=== PATIENT | female | born 1990 | race Caucasian/White ===

== ENCOUNTER 2020-08-27 00:06 | Inpatient (IN) | payer BC ==
[~2020-08-27 00:06] MED LIST: Acetaminophen 325 MG Tab PO PRN; Lactated Ringers 1,000 ML IV ONE; Ondansetron 4 MG/2 ML SDV IVPUSH PRN; Oxytocin/Normal Saline 30 UNIT/500 ML BAG IV SCH; hydrOXYzine HCl 25 MG Tab PO PRN
[2020-08-27] MEDS ORDERED: Oxytocin/Normal Saline 30 UNIT/500 ML BAG IV ONE (00:11)
[2020-08-27] MEDS: Misoprostol 25 MCG (1/4 of 100 MCG) Tab VAG PRN ×2 (01:50→06:04)
[2020-08-27] MEDS: Sodium Chloride 0.9% 10 ML Syringe FLUSH PRN (01:50)
[2020-08-27] MEDS: Lactated Ringers 1,000 ML IV SCH ×2 (10:30→11:35)
[2020-08-27] MEDS ORDERED: Citric Acid/Sodium Citrate Solution 30 ML Cup PO ONE (11:11)
[2020-08-27] MEDS ORDERED: Sodium Chloride 0.9% 10 ML Syringe FLUSH PRN (11:27)
[2020-08-27] MEDS ORDERED: Tranexamic Acid 1,000 MG in Sodium Chloride 0.9% 100 ML IV PRN (11:27)
[2020-08-27] MEDS ORDERED: ceFAZolin 2 GM in Premix Bag 1 BAG IV ONE (11:30)
[2020-08-27] MEDS ORDERED: Oxytocin/Normal Saline 30 UNIT/500 ML BAG IV SCH (11:30)
--- NOTE | 2020-08-27 11:34 | PCM.LDHP ---
L&D History of Present Illness - General Date of Service: 08/27/20 Admit Problem/Dx: Patient Status Order with Admit Dx/Problem 08/26/20 21:59 Patient Status [ADT] Routine Admission Diagnosis/Problem Admission Diagnosis/Problem High risk Source of Information: Patient - History of Present Illness Introduction:: Patient is at 37w0d who is being admitted to L & D for induction of labor due to diagnosis of preeclampsia. She had elevated blood pressures around 35 weeks and 24 hour total protein was 300 confirming diagnosis. She was started on 100 mg Labetalol BID. This was increased to 200 mg BID earlier this week. Blood pressures have been 130s/80s. Baby has been active. She denies loss of fluid, vaginal discharge or bleeding. She is taking iron for maternal anemia. She failed 1 hr glucose test but passed her 3 hour. She has a history of delivery. Did not know she was with first baby and delivered around 37 weeks based on baby's physical exam. She did do vaginal progesterone for a couple of weeks due to shortened cervix and history of delivery. She is GBS negative. - Related Data Allergies/Adverse Reactions: Allergies Allergy/AdvReac Type Severity Reaction Status Date / Time Penicillins Allergy Hives Verified 08/27/20 03:03 Home Medications: Home Meds Pnv No.95/Ferrous Fum/Folic AC [ Caplet] 1 each PO DAILY 08/17/20 [History] Past Medical History [employer] History: Reports: , Other (See Below) Other OB/BYN History: surgical removal of IUD Neurological History: Reports: Migraines - Infectious Disease History Infectious Disease History: Reports: None Social & Family History - Family History Family Medical History: No Pertinent Family History (Family history of lung and throat cancer in maternal grandparents. Stoke and HTN in paternal grandfather.) - Tobacco Use Tobacco Use Status *Q: Never Tobacco User Second Hand Smoke Exposure: No - Caffeine Use Caffeine Use: Reports: None - Recreational Drug Use Recreational Drug Use: No H&P Review of Systems - Review of Systems: Review Of Systems: See Below General: Denies: Fever, Chills, Weakness HEENT: Reports: Headaches. Denies: Sore Throat, Visual Changes Pulmonary: Denies: Shortness of Breath, Cough Cardiovascular: Reports: Edema, Blood Pressure Problem. Denies: Chest Pain, Palpitations, Lightheadedness Gastrointestinal: Denies: Abdominal Pain, Constipation, Diarrhea, Nausea, Vomiting Skin: Denies: Rash Neurological: Reports: Headache. Denies: Numbness, Seizure, Weakness Hematologic/Lymphatic: Reports: Anemia L&D Exam - Exam Exam: See Below - Vital Signs Vital Signs: Last Vital Signs Temp 98.5 F 08/27/20 05:15 Pulse 74 08/27/20 05:15 Resp 18 08/27/20 05:15 BP 141/84 H 08/27/20 05:15 Pulse Ox Weight: 92.986 kg - OB Specific Contraction Duration (sec): 60-80 Contraction Frequency (min): 3.5-7 Contraction Intensity: Mild - Reina Score Reina Score Cervix Position: Midposition Reina Score Consistency: Medium Reina Score Effacement: 31-50% Reina Score Dilation: Closed - Exam General: Alert, Oriented HEENT: Conjunctiva Clear, Mucosa Moist & [place] Neck: Supple, Trachea Midline Lungs: Clear to Auscultation, Normal Respiratory Effort Cardiovascular: Regular Rate, Regular Rhythm, Normal S1, Normal S2 GI/Abdominal Exam: Soft, Non-Tender Extremities: Non-Tender, Normal Capillary Refill, Pedal Edema Skin: Warm, Dry Neurological: Reflexes Equal Bilateral Psychiatric: Alert, Normal Affect, Normal Mood - Patient Data Lab Results Last 24 hrs: Laboratory Results - last 24 hr 08/27/20 08/27/20 08/27/20 Range/Units 01:11 01:18 01:18 WBC 9.0 (5.0-10.0) 10^3/uL RBC 4.20 (4.2-5.4) 10^6/uL Hgb 12.5 (12.0-16.0) g/dL Hct 37.7 (37.0-47.0) % MCV 89.8 (80-100) fL MCH 29.8 (27.0-34.0) pg MCHC 33.2 (33.0-35.0) g/dL Plt Count 172 (150-450) 10^3/uL BUN 13 (7-18) mg/dL Creatinine 0.96 (0.55-1.02) mg/dL Est Cr Clr Drug Dosing TNP Estimated GFR (MDRD) > 60 Uric Acid 7.3 H (2.6-6.0) mg/dL AST 17 (15-37) U/L ALT 18 (14-59) U/L Lactate Dehydrogenase 173 (81-234) U/L Urine Color (YELLOW) Urine Appearance (CLEAR) Urine pH (5.0-9.0) Ur Specific [place] (1.005-1.030) Urine Protein (NEGATIVE) Urine Glucose (UA) (NEGATIVE) Urine Ketones (NEGATIVE) Urine Occult Blood (NEGATIVE) Urine Nitrite (NEGATIVE) Urine Bilirubin (NEGATIVE) Urine Urobilinogen (0.2-1.0) mg/dL Ur Leukocyte Esterase (NEGATIVE) Ur Random Creatinine (No establ ref range) mg/dL U Random Total Protein (0.0-11.9) mg/dL Protein/Creatinin Ratio (<150.0) mg/g SARS-CoV-2 RNA (TICO) Negative (NEGATIVE) 08/27/20 08/27/20 Range/Units 01:45 01:45 WBC (5.0-10.0) 10^3/uL RBC (4.2-5.4) 10^6/uL Hgb (12.0-16.0) g/dL Hct (37.0-47.0) % MCV (80-100) fL MCH (27.0-34.0) pg MCHC (33.0-35.0) g/dL Plt Count (150-450) 10^3/uL BUN (7-18) mg/dL Creatinine (0.55-1.02) mg/dL Est Cr Clr Drug Dosing Estimated GFR (MDRD) Uric Acid (2.6-6.0) mg/dL AST (15-37) U/L ALT (14-59) U/L Lactate Dehydrogenase (81-234) U/L Urine Color Yellow (YELLOW) Urine Appearance Turbid (CLEAR) Urine pH 7.0 (5.0-9.0) Ur Specific [place] >= 1.030 (1.005-1.030) Urine Protein 30 H (NEGATIVE) Urine Glucose (UA) Negative (NEGATIVE) Urine Ketones Negative (NEGATIVE) Urine Occult Blood Trace-intact H (NEGATIVE) Urine Nitrite Negative (NEGATIVE) Urine Bilirubin Negative (NEGATIVE) Urine Urobilinogen 0.2 (0.2-1.0) mg/dL Ur Leukocyte Esterase Moderate H (NEGATIVE) Ur Random Creatinine 166.82 (No establ ref range) mg/dL U Random Total Protein 33.8 H (0.0-11.9) mg/dL Protein/Creatinin Ratio 202.6 H (<150.0) mg/g SARS-CoV-2 RNA (TICO) (NEGATIVE) Result Diagrams: 08/27/20 01:18 08/27/20 01:18 - Problem List (1) Preeclampsia SNOMED Code(s): 939451829 ICD Code: O14.90 - UNSPECIFIED PRE-ECLAMPSIA, UNSPECIFIED TRIMESTER Status: Acute Current Visit: Yes (2) Maternal anemia in , antepartum SNOMED Code(s): 000226480 ICD Code: O99.019 - ANEMIA COMPLICATING , UNSPECIFIED TRIMESTER Status: Acute Current Visit: Yes (3) Hx of delivery, currently SNOMED Code(s): 363579525, 413402495 ICD Code: O09.899 - SUPERVISION OF OTHER HIGH RISK PREGNANCIES, UNSP TRIMESTER Status: Acute Current Visit: Yes Problem List Initiated/Reviewed/Updated: Yes Orders Last 24hrs: Active Orders 24 hr Category Date Time Status Patient Status [ADT] Routine ADT 08/26/20 21:59 Active Communication Order [RC] ASDIRECTED Care 08/26/20 21:59 Active Communication Order [RC] ASDIRECTED Care 08/26/20 21:59 Active Communication Order [RC] ASDIRECTED Care 08/26/20 21:59 Active Communication Order [RC] ASDIRECTED Care 08/26/20 21:59 Active Communication Order [RC] ASDIRECTED Care 08/26/20 21:59 Active Notify Provider Vital Signs OB [RC] ASDIRECTED Care 08/26/20 21:59 Active Notify Provider [RC] PRN Care 08/26/20 21:59 Active Notify Provider [RC] PRN Care 08/26/20 21:59 Active Notify Provider [RC] STAT Care 08/26/20 21:59 Active Peripheral IV Care [RC] . DIRECTED Care 08/27/20 11:28 Ordered Peripheral IV Care [RC] 08,20 Care 08/26/20 22:02 Active Procedure Site Prep Instruct [RC] ASDIRECTED Care 08/27/20 11:27 Ordered RT Incentive Spirometry [RC] ASDIRECTED Care 08/27/20 11:27 Ordered Up ad Luzmaria [RC] PER UNIT ROUTINE Care 08/26/20 21:59 Active Vaginal Exam [RC] PRN Care 08/26/20 21:59 Active Vital Signs [RC] 08,20 Care 08/26/20 21:59 Active Vital Signs [RC] PER UNIT ROUTINE Care 08/27/20 11:27 Ordered Nothing Per Oral Diet [DIET] Diet 08/27/20 Breakfast Ordered Nothing Per Oral Diet [DIET] Diet 08/27/20 Dinner Ordered Nothing Per Oral Diet [DIET] Diet 08/27/20 Lunch Ordered TYPE AND SCREEN [BBK] Stat Lab 08/27/20 11:27 Ordered Acetaminophen [TylenoL] Med 08/26/20 21:59 Active 650 mg PO Q4H PRN Lactated Ringers @ 125 MLS/HR(1000ml) Med 08/27/20 11:30 Ordered Lactated Ringers [Ringers, Lactated] 1,000 ml IV ASDIRECTED Ondansetron [Zofran] Med 08/26/20 22:06 Active 4 mg IVPUSH Q4H PRN Oxytocin 30 Units in NS @ 2 MUNITS/MIN(500ml) Med 08/27/20 11:30 Ordered Oxytocin/Normal Saline [Pitocin in NS 30 UNIT/500 ML] 30 unit in 500 ml IV TITRATE Oxytocin/Normal Saline [Pitocin in NS 30 UNIT/500 ML] Med 08/26/20 22:00 Active 30 unit in 500 ml IV TITRATE Sodium Chloride 0.9% [Saline Flush] Med 08/26/20 21:59 Active 10 ml FLUSH ASDIRECTED PRN Sodium Chloride 0.9% [Saline Flush] Med 08/27/20 11:27 Ordered 10 ml FLUSH ASDIRECTED PRN Tranexamic Acid [Cyklokapron] 1,000 mg Med 08/27/20 11:27 Ordered Sodium Chloride 0.9% [Normal Saline] 100 ml IV ONETIME ceFAZolin [Ancef 2 GM/50 ML] 2 gm Med 08/27/20 11:27 Ordered Premix Bag 1 bag IV ONETIME hydrOXYzine HCL [Atarax] Med 08/26/20 22:05 Active 50 mg PO ONETIME PRN miSOPROStoL [Cytotec] Med 08/26/20 21:59 Active 25 mcg VAG Q4H PRN Peripheral IV Insertion Adult [OM.PC] Routine Oth 08/27/20 11:27 Ordered Peripheral IV Insertion Adult [OM.PC] Urgent Oth 08/26/20 21:59 Ordered Schedule Procedure [COMM] Per Unit Routine Oth 08/27/20 11:27 Ordered Code Status [Resuscitation Status] Routine Resus Stat 08/26/20 22:03 Ordered Medication Orders Acetaminophen (Acetaminophen 325 Mg Tab) 650 mg PO Q4H PRN PRN Reason: Pain/Fever Hydroxyzine HCl (Hydroxyzine Hcl 25 Mg Tab) 50 mg PO ONETIME PRN PRN Reason: Sleep Last Admin: 08/27/20 01:57 Dose: 50 mg Documented by: MICHAEL Oxytocin/Sodium Chloride (Pitocin In Ns 30 Unit/500 Ml) 30 unit in 500 mls @ 2 mls/hr IV TITRATE DANIELLA; Protocol Misoprostol (Misoprostol 25 Mcg (1/4 Of 100 Mcg) Tab) 25 mcg VAG Q4H PRN PRN Reason: cervical ripening Last Admin: 08/27/20 06:04 Dose: 25 mcg Documented by: Admin: 08/27/20 01:50 Dose: 25 mcg Documented by: MICHAEL Ondansetron HCl (Ondansetron 4 Mg/2 Ml Sdv) 4 mg IVPUSH Q4H PRN PRN Reason: Nausea/Vomiting Sodium Chloride (Sodium Chloride 0.9% 10 Ml Syringe) 10 ml FLUSH ASDIRECTED PRN PRN Reason: Keep Vein Open Last Admin: 08/27/20 01:50 Dose: 10 ml Documented by: MICHAEL Assessment/Plan Comment:: Patient here for induction of labor at 37w0d due to preeclampsia. Check PIH labs. Will monitor blood pressures closely. Will start with cytotec. Pitocin when appropriate, AROM when able. She does desire intrathecal. GBS negative. Anticipate vaginal delivery. Ambar Machado MD
[2020-08-27] MEDS ORDERED: Oxytocin/Normal Saline 60 UNIT/1,000 ML BAG ONE (11:35)
--- NOTE | 2020-08-27 11:40 | PCM.SN.2 ---
- Free Text/Narrative Note: 08/27/20 Patient is at 37w0d here for induction of labor. She has received 2 doses of Cytotec. Current cervical exam is 1.5 cm dilated. When due for her check at 10 AM, she was placed back on the monitor and baby has had recurrent decels into the 80s since then. She was given oxygen and fluid boluses along with r epositioning with no improvement. Given current tracing, baby unlikely to tolerate labor as baby has failed stress test. Dr. Skinner consulted for further management. Will proceed with . Ambar Machado MD
[2020-08-27] MEDS ORDERED: Metoclopramide 10 MG/2 ML SDV IV ONE (12:00)
[2020-08-27] MEDS ORDERED: Tranexamic Acid 1,000 MG in Sodium Chloride 0.9% 100 ML IV ONE (12:00)
[2020-08-27] MEDS ORDERED: Dexamethasone 4 MG/ML SDV IV ONE (12:00)
[2020-08-27] MEDS ORDERED: Ketorolac 30 MG/ML SDV IVPUSH ONE (12:00)
[2020-08-27] MEDS ORDERED: ePHEDrine 50 MG/ML SDV IV ONE (12:00)
[2020-08-27] MEDS ORDERED: Ondansetron 4 MG/2 ML SDV IV ONE (12:00)
[2020-08-27] MEDS ORDERED: Methylergonovine 0.2 MG/1 ML Amp IM PRN (18:36)
[2020-08-27] MEDS ORDERED: ePHEDrine 50 MG/ML SDV IVPUSH PRN (18:36)
[2020-08-27] MEDS ORDERED: Ondansetron 4 MG/2 ML SDV IVPUSH PRN (18:36)
[2020-08-27] MEDS ORDERED: Naloxone 2 MG/2 ML Syringe IVPUSH PRN (18:36)
[2020-08-27] MEDS ORDERED: Misoprostol 400 MCG (4 X 100 MCG TAB) RECTAL PRN (18:36)
[2020-08-27] MEDS ORDERED: Carboprost Tromethamine 250 MCG/1 ML Amp IM PRN (18:36)
[2020-08-27] MEDS ORDERED: diphenhydrAMINE 50 MG/ML SDV IVPUSH PRN (18:36)
--- NOTE | 2020-08-27 18:38 | PCM.PRNOTE ---
- Free Text/Narrative Note: Section Operative Report Date of Surgery: 08/27/2020 Surgeon: Elvi Skinner MD Cigarette Paper Tester: Ambar Machado MD Pre-Operative Diagnosis: at 37w0d Pre-eclampsia Non-reassuring status Post-Operative Diagnosis: Same Procedure Performed: Primary low transverse section Anesthesia: Spinal EBL: 600 mL IVF: 1500 mL Drains: Narvaez catheter with 425 mL of urine output Specimens: None Complications: None apparent Findings: Normal uterus, tubes, and ovaries. Umbilical cord with true knot present Indication and Consent: After Cytotec placement, FHT showed persistent recurrent decelerations with decreased variability at baseline. This did not improve with conservative measures. section was recommended to the patient for wellbeing. The patient understood that the risks of section include, but are not limited to, visceral or vascular injury, infection, blood loss and need for blood transfusion, prolonged hospitalization, and reoperation. The patient stated understanding and desired to proceed. All questions were answered. Procedure in Detail: The patient was taken to the operating room where spinal anesthesia was placed and found to be adequate. 2 grams of cefazolin (Ancef) were given for infection prophylaxis. She was then prepped and draped in routine fashion in dorsal supine position with a left haines tilt. Narvaez catheter and pneumoboots were placed. A Pfannenstiel skin incision was made with a scalpel. The incision was carried down to the fascia sharply. The fascia was incised and extended laterally. The inferior aspect of the fascia was grasped with Radha clamps; the underlying rectus muscle and pyramidalis was dissected off with sharp and blunt technique. In a similar fashion, the superior aspect of the fascia was elevated with Radha clamps and the rectus muscle was dissected off. Hemostasis was achieved with the Bovie. The rectus musculature was in the midline down to the level of the pubic symphysis. Pre-peritoneal fatty tissue was bluntly dissected to expose the peritoneum. The peritoneum was found to be free of adherent bowel or bladder tissue and entered bluntly. The peritoneal opening was then extended superiorly and inferiorly to the bladder reflection with good visualization of the bladder. The Cash retractor was placed. Brief intraabdominal survey revealed scant, clear peritoneal fluid and thinned-out lower uterine segment. The lower uterine segment was incised with a scalpel. The amniotic sac was ruptured with an Allis clamp and clear fluid was noted. The uterine incision was extended bluntly with lateral and upward traction. The fetus was in vertex position. The head was elevated out of the maternal pelvis with special attention paid to avoid using the uterine incision as a fulcrum. Gentle fundal pressure was applied once the head was brought into the incision. The was delivered with minimal difficulty. Bulb suctioning of the 's nose and mouth was performed on the operative field. The cord was clamped and cut in standard fashion, and the infant was handed over to the awaiting nursery staff. A true knot was noted in the umbilical cord. IV oxytocin was initiated to facilitate uterine contractions. Cord blood was collected. The placenta was delivered intact with manual message of the uterine fundus along with gentle cord traction. The inside of the uterus was gently wiped with a lap sponge to assure complete removal of remaining products of conception. The uterine incision was closed with 0 -Vicryl suture in a running locked fashion. A second imbricating layer of 0-Vicryl was also placed. An additional figure-of-8 stitch was used on the right apex of the incision to achieve hemostasis. The incision was inspected and hemostasis achieved. The ovaries and tubes were visualized and found to be normal. The uterus, tubes, and ovaries were returned to the abdominal cavity. The blood clots and fluid were wiped out of the abdomen and pelvis with moist laparotomy sponges. The uterine incision was re-inspected along with all other incised surfaces and good hemostasis was confirmed. The Cash retractor was removed. The peritoneus was then closed using 2-0 Vicyrl. The fascia was then closed with 2-0 looped PDS suture with care not to include any underlying abdominal contents. The skin was closed with 3-0 Monocryl on a Richy needle in a subcuticular fashion. Dressing was applied. Sponge and instrument counts were reported as correct times two. Patient tolerated procedure well and was taken to PACU in stable condition. Elvi Skinner MD
[2020-08-27] MEDS ORDERED: Lactated Ringers 1,000 ML IV SCH (18:45)
[2020-08-27] MEDS: Ketorolac 30 MG/ML SDV IVPUSH SCH (19:08)
[2020-08-27] MEDS: Docusate Sodium 100 MG Cap PO PRN (21:14)
[2020-08-27] MEDS: Simethicone 80 MG Tab.Chew PO SCH (21:14)
[2020-08-28] MEDS: Ketorolac 30 MG/ML SDV IVPUSH SCH ×2 (01:01→07:10)
[2020-08-28] MEDS: Sodium Chloride 0.9% 10 ML Syringe FLUSH PRN (01:13)
[2020-08-28] MEDS: Docusate Sodium 100 MG Cap PO PRN ×2 (10:05→21:56)
[2020-08-28] MEDS: Prenatal Multivitamin with Calcium/Folic Acid/Iron Tab PO SCH (10:05)
[2020-08-28] MEDS: Simethicone 80 MG Tab.Chew PO SCH ×4 (10:06→21:55)
[2020-08-28] MEDS: Acetaminophen/oxyCODONE 325-5 MG Tab PO PRN ×3 (12:38→21:59)
[2020-08-28] MEDS: Ibuprofen 800 MG Tab PO PRN (17:27)
[2020-08-29] MEDS: Ibuprofen 800 MG Tab PO PRN ×2 (01:20→09:33)
[2020-08-29] MEDS: Acetaminophen/oxyCODONE 325-5 MG Tab PO PRN ×2 (06:23→11:13)
--- NOTE | 2020-08-29 09:01 | PCM.DCSUM1 ---
Discharge Summary - Hospital Course Free Text/Narrative:: 30-year-old, now , POD#2 s/p pLTCS at 37w0d Diagnosis: Stroke: No - Discharge Data Discharge Date: 08/29/20 Discharge Disposition: Home, Self-Care 01 Condition: Good - Referral to Home Health Primary Care Physician: Ambar Machado MD - Patient Summary/Data Operative Procedure(s) Performed: Primary low transverse section Complications: None Consults: None Labs Pending at D/C: None Recommended Follow-up Testing/Procedures: None Planned Operative Procedure(s) after DC: None Hospital Course: Please see subjective section - Patient Instructions Diet: Regular Diet as Tolerated Activity: As Tolerated, No Lifting Over 20 Pounds Driving: Do Not Drive (while taking pain medication) Showering/Bathing: May Shower Wound/Incision Care: Keep Operative Site/Wound Site Clean and Dry Notify Provider of: Fever, Increased Pain, Swelling and Redness, Drainage, Nausea and/or Vomiting - Discharge Plan *PRESCRIPTION DRUG MONITORING PROGRAM REVIEWED*: Not Applicable *COPY OF PRESCRIPTION DRUG MONITORING REPORT IN PATIENT [place]: Not Applicable Home Medications: Home Meds Pnv No.95/Ferrous Fum/Folic AC [ Caplet] 1 each PO DAILY 08/17/20 [History] Acetaminophen [Tylenol] 650 mg PO Q4H PRN tablet 08/29/20 [Rx] Acetaminophen/oxyCODONE [Percocet 325-5 MG] 1 tab PO Q4H PRN tablet 08/29/20 [Rx] Docusate Sodium [Colace] 100 mg PO Q12H PRN cap 08/29/20 [Rx] Ibuprofen [Motrin] 800 mg PO Q8H PRN tablet 08/29/20 [Rx] Patient Handouts: Care After Delivery, Incision Care, Adult, [id number] - Discharge Summary/Plan Comment DC Time >30 min.: No Discharge Summary/Plan Comment: Discharge home today. Follow-up with Dr. Machado in 6-8 weeks for care. Reasons to return sooner or to present to the ED were reviewed with the patient, and all questions were answered. - General Info Date of Service: 08/29/20 Subjective Update: Patient is doing well. She has been ambulating without difficulty. Narvaez has been removed and she is voiding without difficulty. Tolerating a general diet. Pain is well controlled with medication. No fever, chills, headache, dizziness or lightheadedness. No concerns per patient or per nursing staff. Functional Status: Reports: Pain Controlled, Tolerating Diet, Ambulating, Urinating - Review of Systems General: Reports: Fatigue HEENT: Reports: No Symptoms Pulmonary: Reports: No Symptoms Cardiovascular: Reports: No Symptoms Gastrointestinal: Reports: No Symptoms Genitourinary: Reports: No Symptoms Musculoskeletal: Reports: Back Pain Skin: Reports: No Symptoms Neurological: Reports: No Symptoms - Patient Data Vitals - Most Recent: Last Vital Signs Temp 36.9 C 08/28/20 20:00 Pulse 89 08/28/20 20:00 Resp 16 08/28/20 20:00 BP 138/76 08/28/20 20:00 Pulse Ox 100 08/28/20 20:00 Weight - Most Recent: 92.986 kg Med Orders - Current: Current Medications Acetaminophen (Acetaminophen 325 Mg Tab) 650 mg PO Q4H PRN PRN Reason: Pain/Fever Carboprost Tromethamine (Carboprost Tromethamine 250 Mcg/1 Ml Amp) 250 mcg IM ONETIME PRN PRN Reason: Bleeding Diphenhydramine HCl (Diphenhydramine 50 Mg/Ml Sdv) 25 mg IVPUSH Q6H PRN PRN Reason: Itching or Nausea Docusate Sodium (Docusate Sodium 100 Mg Cap) 100 mg PO Q12H PRN PRN Reason: Constipation Last Admin: 08/28/20 21:56 Dose: 100 mg Documented by: Ephedrine Sulfate (Ephedrine 50 Mg/Ml Sdv) 5 mg IVPUSH SEECOMMENT PRN PRN Reason: Other Oxytocin/Sodium Chloride (Pitocin In Ns 30 Unit/500 Ml) 30 unit in 500 mls @ 2 mls/hr IV TITRATE DANIELLA; Protocol Last Titration: 08/27/20 16:15 Dose: 0 munits/min, 0 mls/hr Documented by: Lactated Ringer's (Ringers, Lactated) 1,000 mls @ 125 mls/hr IV ASDIRECTED DANIELLA Last Admin: 08/27/20 11:35 Dose: 999 mls/hr Documented by: Tranexamic Acid 1,000 mg/ (Sodium Chloride) 110 mls @ 660 mls/hr IV ONETIME PRN PRN Reason: Bleeding Lactated Ringer's (Ringers, Lactated) 1,000 mls @ 125 mls/hr IV ASDIRECTED DANIELLA Last Admin: 08/27/20 16:30 Dose: 125 mls/hr Documented by: Ibuprofen (Ibuprofen 800 Mg Tab) 800 mg PO Q8H PRN PRN Reason: Cramping Last Admin: 08/29/20 01:20 Dose: 800 mg Documented by: Methylergonovine Maleate (Methylergonovine 0.2 Mg/1 Ml Amp) 0.2 mg IM ONETIME PRN PRN Reason: Excessive Vaginal Bleeding Misoprostol (Misoprostol 400 Mcg (4 X 100 Mcg Tab)) 800 mcg RECTAL ASDIRECTED PRN PRN Reason: Excessive bleeding Naloxone HCl (Naloxone 2 Mg/2 Ml Syringe) 0.1 mg IVPUSH SEECOMMENT PRN PRN Reason: Respiratory Depression Ondansetron HCl (Ondansetron 4 Mg/2 Ml Sdv) 4 mg IVPUSH Q4H PRN PRN Reason: Nausea/Vomiting Ondansetron HCl (Ondansetron 4 Mg/2 Ml Sdv) 4 mg IVPUSH Q4H PRN PRN Reason: Nausea/Vomiting Oxycodone/Acetaminophen (Acetaminophen/Oxycodone 325-5 Mg Tab) 1 tab PO Q4H PRN PRN Reason: Pain (moderate 4-6) Last Admin: 08/28/20 21:59 Dose: 1 tab Documented by: Oxycodone/Acetaminophen (Acetaminophen/Oxycodone 325-5 Mg Tab) 2 tab PO Q4H PRN PRN Reason: Pain (moderate 4-6) Last Admin: 08/29/20 06:23 Dose: 2 tab Documented by: Prenat Multivit/Dog Day Care Attendant/Iron/Folic Ac ( Multivitamin With Calcium/Folic Acid/Iron Tab) 1 each PO DAILY [facility] Last Admin: 08/28/20 10:05 Dose: 1 each Documented by: Simethicone (Simethicone 80 Mg Tab.Chew) 160 mg PO QID [facility] Last Admin: 08/28/20 21:55 Dose: 160 mg Documented by: Sodium Chloride (Sodium Chloride 0.9% 10 Ml Syringe) 10 ml FLUSH ASDIRECTED PRN PRN Reason: Keep Vein Open Last Admin: 08/28/20 01:13 Dose: 10 ml Documented by: Discontinued Medications Citric Acid/Sodium Citrate (Citric Acid/Sodium Citrate Solution 30 Ml Cup) 30 ml PO ONETIME ONE Stop: 08/27/20 11:12 Last Admin: 08/27/20 11:42 Dose: 30 ml Documented by: Hydroxyzine HCl (Hydroxyzine Hcl 25 Mg Tab) 50 mg PO ONETIME PRN PRN Reason: Sleep Last Admin: 08/27/20 01:57 Dose: 50 mg Documented by: Lactated Ringer's (Ringers, Lactated) 1,000 mls @ 999 mls/hr IV ONETIME ONE Stop: 08/26/20 23:00 Cefazolin Sodium/Dextrose 2 gm (/ Premix) 50 mls @ 100 mls/hr IV ONETIME ONE Stop: 08/27/20 11:59 Last Admin: 08/27/20 12:00 Dose: 100 mls/hr Documented by: Cefazolin Sodium/Dextrose (Ancef 2 Gm/50 Ml) Confirm Administered Dose 50 mls @ as directed .ROUTE .STK-MED ONE Stop: 08/27/20 11:36 Oxytocin/Sodium Chloride (Pitocin In Ns 30 Unit/500 Ml) Confirm Administered Dose 60 unit in 1,000 mls @ as directed .ROUTE .STK-MED ONE Stop: 08/27/20 11:36 Oxytocin/Sodium Chloride (Pitocin In Ns 30 Unit/500 Ml) 30 unit in 500 mls @ as directed IV .STK-MED ONE Stop: 08/27/20 00:12 Ketorolac Tromethamine (Ketorolac 30 Mg/Ml Sdv) 15 mg IVPUSH Q6H DANIELLA Stop: 08/28/20 06:46 Last Admin: 08/28/20 07:10 Dose: 15 mg Documented by: Misoprostol (Misoprostol 25 Mcg (1/4 Of 100 Mcg) Tab) 25 mcg VAG Q4H PRN PRN Reason: cervical ripening Last Admin: 08/27/20 06:04 Dose: 25 mcg Documented by: - Exam General: Reports: Alert, Oriented Lungs: Reports: Clear to Auscultation, Normal Respiratory Effort Cardiovascular: Reports: Regular Rate, Regular Rhythm, No Murmurs GI/Abdominal Exam: Soft Extremities: Pedal Edema (1+ bilaterally) Skin: Reports: Warm, Dry, Intact Wound/Incisions: Reports: Healing Well, No Drainage. Denies: Erythema Neurological: Reports: No New Focal Deficit
[2020-08-29] MEDS: Prenatal Multivitamin with Calcium/Folic Acid/Iron Tab PO SCH (09:32)
[2020-08-29] MEDS: Docusate Sodium 100 MG Cap PO PRN (09:32)
[2020-08-29] MEDS: Simethicone 80 MG Tab.Chew PO SCH (09:32)
--- NOTE | 2020-09-04 17:24 | PCM.PNPP ---
- General Info Date of Service: 08/28/20 Subjective Update: POD #1. Patient is doing well. Gutiérrez is in place with good urine output. Patient stood at the side of the bed without difficulty. Tolerating a general diet. Pain is well controlled. No fever, chills, dizziness or lightheadedness. Bottle feeding. No concerns per patient or per nursing staff. Functional Status: Reports: Pain Controlled, Tolerating Diet, Ambulating - Review of Systems General: Reports: Fatigue HEENT: Reports: No Symptoms Pulmonary: Reports: No Symptoms Cardiovascular: Reports: No Symptoms Gastrointestinal: Reports: No Symptoms Genitourinary: Reports: No Symptoms Musculoskeletal: Reports: Back Pain Skin: Reports: No Symptoms Neurological: Reports: No Symptoms - General Info Date of Service: 08/28/20 - Patient Data Vital Signs - Most Recent: Last Vital Signs Temp 36.7 C 08/29/20 08:00 Pulse 97 08/29/20 08:00 Resp 16 08/29/20 08:00 BP 146/85 H 08/29/20 08:00 Pulse Ox 99 08/29/20 08:00 Weight - Most Recent: 92.986 kg Med Orders - Current: Current Medications Discontinued Medications Acetaminophen (Acetaminophen 325 Mg Tab) 650 mg PO Q4H PRN PRN Reason: Pain/Fever Carboprost Tromethamine (Carboprost Tromethamine 250 Mcg/1 Ml Amp) 250 mcg IM ONETIME PRN PRN Reason: Bleeding Citric Acid/Sodium Citrate (Citric Acid/Sodium Citrate Solution 30 Ml Cup) 30 ml PO ONETIME ONE Stop: 08/27/20 11:12 Last Admin: 08/27/20 11:42 Dose: 30 ml Documented by: Dexamethasone (Dexamethasone 4 Mg/Ml Sdv) 8 mg IV .STK-MED ONE Stop: 08/27/20 12:01 Diphenhydramine HCl (Diphenhydramine 50 Mg/Ml Sdv) 25 mg IVPUSH Q6H PRN PRN Reason: Itching or Nausea Docusate Sodium (Docusate Sodium 100 Mg Cap) 100 mg PO Q12H PRN PRN Reason: Constipation Last Admin: 08/29/20 09:32 Dose: 100 mg Documented by: Ephedrine Sulfate (Ephedrine 50 Mg/Ml Sdv) 5 mg IVPUSH SEECOMMENT PRN PRN Reason: Other Ephedrine Sulfate (Ephedrine 50 Mg/Ml Sdv) 40 mg IV .STK-MED ONE Stop: 08/27/20 12:01 Hydroxyzine HCl (Hydroxyzine Hcl 25 Mg Tab) 50 mg PO ONETIME PRN PRN Reason: Sleep Last Admin: 08/27/20 01:57 Dose: 50 mg Documented by: Lactated Ringer's (Ringers, Lactated) 1,000 mls @ 999 mls/hr IV ONETIME ONE Stop: 08/26/20 23:00 Oxytocin/Sodium Chloride (Pitocin In Ns 30 Unit/500 Ml) 30 unit in 500 mls @ 2 mls/hr IV TITRATE DANIELLA; Protocol Last Titration: 08/27/20 16:15 Dose: 0 munits/min, 0 mls/hr Documented by: Lactated Ringer's (Ringers, Lactated) 1,000 mls @ 125 mls/hr IV ASDIRECTED DANIELLA Last Admin: 08/27/20 11:35 Dose: 999 mls/hr Documented by: Tranexamic Acid 1,000 mg/ (Sodium Chloride) 110 mls @ 660 mls/hr IV ONETIME PRN PRN Reason: Bleeding Cefazolin Sodium/Dextrose 2 gm (/ Premix) 50 mls @ 100 mls/hr IV ONETIME ONE Stop: 08/27/20 11:59 Last Admin: 08/27/20 12:00 Dose: 100 mls/hr Documented by: Cefazolin Sodium/Dextrose (Ancef 2 Gm/50 Ml) Confirm Administered Dose 50 mls @ as directed .ROUTE .STK-MED ONE Stop: 08/27/20 11:36 Oxytocin/Sodium Chloride (Pitocin In Ns 30 Unit/500 Ml) Confirm Administered Dose 60 unit in 1,000 mls @ as directed .ROUTE .STK-MED ONE Stop: 08/27/20 11:36 Oxytocin/Sodium Chloride (Pitocin In Ns 30 Unit/500 Ml) 30 unit in 500 mls @ as directed IV .STK-MED ONE Stop: 08/27/20 00:12 Lactated Ringer's (Ringers, Lactated) 1,000 mls @ 125 mls/hr IV ASDIRECTED DANIELLA Last Admin: 08/27/20 16:30 Dose: 125 mls/hr Documented by: Tranexamic Acid 1,000 mg/ (Sodium Chloride) 110 mls @ as directed IV .STK-MED ONE Stop: 08/27/20 12:01 Ibuprofen (Ibuprofen 800 Mg Tab) 800 mg PO Q8H PRN PRN Reason: Cramping Last Admin: 08/29/20 09:33 Dose: 800 mg Documented by: Ketorolac Tromethamine (Ketorolac 30 Mg/Ml Sdv) 15 mg IVPUSH Q6H DANIELLA Stop: 08/28/20 06:46 Last Admin: 08/28/20 07:10 Dose: 15 mg Documented by: Ketorolac Tromethamine (Ketorolac 30 Mg/Ml Sdv) 30 mg IVPUSH .STK-MED ONE Stop: 08/27/20 12:01 Methylergonovine Maleate (Methylergonovine 0.2 Mg/1 Ml Amp) 0.2 mg IM ONETIME PRN PRN Reason: Excessive Vaginal Bleeding Metoclopramide HCl (Metoclopramide 10 Mg/2 Ml Sdv) 10 mg IV .STK-MED ONE Stop: 08/27/20 12:01 Misoprostol (Misoprostol 25 Mcg (1/4 Of 100 Mcg) Tab) 25 mcg VAG Q4H PRN PRN Reason: cervical ripening Last Admin: 08/27/20 06:04 Dose: 25 mcg Documented by: Misoprostol (Misoprostol 400 Mcg (4 X 100 Mcg Tab)) 800 mcg RECTAL ASDIRECTED PRN PRN Reason: Excessive bleeding Naloxone HCl (Naloxone 2 Mg/2 Ml Syringe) 0.1 mg IVPUSH SEECOMMENT PRN PRN Reason: Respiratory Depression Ondansetron HCl (Ondansetron 4 Mg/2 Ml Sdv) 4 mg IVPUSH Q4H PRN PRN Reason: Nausea/Vomiting Ondansetron HCl (Ondansetron 4 Mg/2 Ml Sdv) 4 mg IVPUSH Q4H PRN PRN Reason: Nausea/Vomiting Ondansetron HCl (Ondansetron 4 Mg/2 Ml Sdv) 4 mg IV .STK-MED ONE Stop: 08/27/20 12:01 Oxycodone/Acetaminophen (Acetaminophen/Oxycodone 325-5 Mg Tab) 1 tab PO Q4H PRN PRN Reason: Pain (moderate 4-6) Last Admin: 08/29/20 11:13 Dose: 1 tab Documented by: Oxycodone/Acetaminophen (Acetaminophen/Oxycodone 325-5 Mg Tab) 2 tab PO Q4H PRN PRN Reason: Pain (moderate 4-6) Last Admin: 08/29/20 06:23 Dose: 2 tab Documented by: Prenat Multivit/[place]/Iron/Folic Ac ( Multivitamin With Calcium/Folic Acid/Iron Tab) 1 each PO DAILY [facility] Last Admin: 08/29/20 09:32 Dose: 1 each Documented by: Simethicone (Simethicone 80 Mg Tab.Chew) 160 mg PO QID [facility] Last Admin: 08/29/20 09:32 Dose: 160 mg Documented by: Sodium Chloride (Sodium Chloride 0.9% 10 Ml Syringe) 10 ml FLUSH ASDIRECTED PRN PRN Reason: Keep Vein Open Last Admin: 08/28/20 01:13 Dose: 10 ml Documented by: - Interaction Disposition, : [place] in Room with Family Infant Interaction: Holding Support Person: - Recovery Exam Fundal Tone: Firm Fundal Level: At Umbilicus Fundal Placement: Midline Lochia Amount: Scant Lochia Color: Rubra/Red Perineum Description: Intact, Minimal Bruising/Swelling Episiotomy/Laceration: None Bladder Status: Voiding Urinary Elimination: Voided Other Urinary Elimination, : due to void post gutiérrez removal - will continue to monitor - Exam General: Alert, Oriented Neck: Supple Lungs: Clear to Auscultation, Normal Respiratory Effort Cardiovascular: Regular Rate, Regular Rhythm, No Murmurs GI/Abdominal Exam: Non-Tender Extremities: Normal Inspection Skin: Warm, Dry, Intact Wound/Incisions: Dressing Dry and Intact Neurological: No New Focal Deficit - Problem List & Annotations (1) Status post delivery SNOMED Code(s): 319689828, 936265343 Code(s): Z98.891 - HISTORY OF UTERINE SCAR FROM PREVIOUS SURGERY Status: Acute (2) Hx of delivery, currently SNOMED Code(s): 131591630, 876187764 Code(s): O09.899 - SUPERVISION OF OTHER HIGH RISK PREGNANCIES, UNSP TRIMESTER Status: Acute (3) Maternal anemia in , antepartum SNOMED Code(s): 272735637 Code(s): O99.019 - ANEMIA COMPLICATING , UNSPECIFIED TRIMESTER Status: Acute (4) Preeclampsia SNOMED Code(s): 822923030 Code(s): O14.90 - UNSPECIFIED PRE-ECLAMPSIA, UNSPECIFIED TRIMESTER Status: Acute - Problem List Review Problem List Initiated/Reviewed/Updated: Yes - Assessment Assessment:: 30-year-old, now , POD#1 s/p primary section at 37w0d - Plan Plan:: 1. Continue routine postoperative cares 2. Continue iron for anemia 3. Continue to closely monitor blood pressures. 4. Bottle feeding. 5. Anticipate discharge . Dr. Elvi Skinner MD
== END 2020-08-29 11:30 | disposition home or self-care (01) | DRG 540 ==
LOC: DL.OBCHECK 00:06 → DL.OB 00:10 → OBSVTOIN 12:19
PROVIDERS: ADMIT Family Medicine; ATTEND Family Medicine
PROC: 10907ZC Drainage of Amniotic Fluid, Therapeutic from Products of Conception, Via Natural or Artificial Opening (ICD-10-PCS; principal; 2020-08-27)
PROC: 10D00Z1 Extraction of Products of Conception, Low, Open Approach (ICD-10-PCS; 2020-08-27)
DX: O14.94 Unspecified pre-eclampsia, complicating childbirth (principal); O99.02 Anemia complicating childbirth; D64.9 Anemia, unspecified; O76 Abnormality in fetal heart rate and rhythm complicating labor and delivery; Z20.822 Contact with and (suspected) exposure to COVID-19; Z3A.37 37 weeks gestation of pregnancy; Z37.0 Single live birth
CPT/HCPCS: 01961; 36415; 81003; 82565; 82570; 83615; 84156; 84450; 84460; 84520; 84550; 85027; 86850; 86900; 86901; A9270-GY; J0690; J1100; J1885; J2405; J2590; J2765; J7120; U0002